=== PATIENT | male | born 1990 | race Two or more races ===

== ENCOUNTER 2022-10-22 18:52 | Emergency (ER) | payer MEDICAID, OTHER ==
[~2022-10-22] VITALS: Ht 182.9 cm; Wt 81.8 kg
[2022-10-22 19:02] VITALS: BP 137/88
== END 2022-10-23 00:39 | disposition left against medical advice (07) ==
LOC: ER 18:52 → EDBD 18:52 → ER 19:25
DX: R40.4 Transient alteration of awareness (principal); Z53.21 Procedure and treatment not carried out due to patient leaving prior to being seen by health care provider